=== PATIENT | male | born 1965 | race Caucasian/White ===

== ENCOUNTER 2023-04-27 15:57 | Emergency (ER) | payer MEDICAID ==
[~2023-04-27] VITALS: Ht 190.5 cm; Wt 68.0 kg
[~2023-04-27 15:57] MED LIST: CHLGLU.12S MT; CLIN300 PO; HYDACE5; HYDACE5 PO; IBUP800 PO; META400 PO; META800 PO; RXHYDACE PO
[2023-04-27 16:23] LABS: BASOPHILS ABSOLUTE AUTO 0.05 K/mm3 (0.00-0.23); BASOPHILS PERCENT AUTO 1 % (0-2); EOSINOPHILS ABSOLUTE AUTO 0.07 K/mm3 (0.00-0.68); EOSINOPHILS PERCENT AUTO 1 % (0-6); Hematocrit 37.2 % (37.0-53.0); Hemoglobin 13.1 g/dL (13.5-17.5); IMMATURE GRAN ABSOLUTE AUTO 0.04 K/mm3 (0.00-0.10); IMMATURE GRAN PERCENT AUTO 1 % (0-1); LYMPHOCYTES ABSOLUTE AUTO 2.39 K/mm3 (0.84-5.20); LYMPHOCYTES PERCENT AUTO 30 % (21-46); MONOCYTES ABSOLUTE AUTO 0.97 K/mm3 (0.16-1.47); MONOCYTES PERCENT AUTO 12 % (4-13); Mean Corpuscular HGB Conc 35.2 g/dL (31.5-36.5); Mean Corpuscular Volume 88 fL (80-100); Mean Platelet Volume 9.5 fL (9.1-12.4); NEUTROPHILS ABSOLUTE AUTO 4.33 K/mm3 (1.96-9.15); NEUTROPHILS PERCENT AUTO 55 % (41-73); Platelet Count 395 K/mm3 (150-400); RDW Coefficient Variation 14.4 % (11.7-14.2); RDW Standard Deviation 45.7 fL (35.1-46.3); Red Blood Cell Count 4.23 M/mm3 (4.30-5.90); White Blood Cell Count 7.85 K/mm3 (4.00-11.30)
[2023-04-27 17:15] LABS: Albumin, Blood 3.7 g/dL (3.4-5.0); Albumin/Globulin Ratio 1.1 (0.8-1.8); Bilirubin, Total 0.3 mg/dL (0.1-1.0); Bun/Creatinine Ratio 16.2 (12.0-20.0); Calcium, Blood 8.7 mg/dL (8.5-10.1); Creatinine, Blood 0.74 mg/dL (0.60-1.20); Globulin, Blood 3.4 g/dL (2.2-4.0); Potassium, Blood 3.9 mmol/L (3.5-5.5); Total Protein, Blood 7.1 g/dL (6.4-8.2)
[2023-04-27] MEDS ORDERED: ACETAMINOPHEN500 MG PO (18:54)
[2023-04-27 19:10] VITALS: BP 122/83
[2023-04-28] MEDS ORDERED: COMBIVENT RESPIM4 G1 INH (14:38)
[2023-04-28] MEDS ORDERED: Toprol Xl25 MG PO (14:38)
[2023-04-28] MEDS ORDERED: ALBU2.5V5 INH (14:49)
== END 2023-04-27 19:12 | disposition home or self-care (01) ==
LOC: ER 15:57
PROVIDERS: Physician Assistant
DX: R07.89 Other chest pain (principal); R10.9 Unspecified abdominal pain; Z79.899 Other long term (current) drug therapy
CPT/HCPCS: 71046; 80053; 85025; 93005; 93010; 96374; 99283-25; J1885

== ENCOUNTER 2023-08-29 22:12 | Emergency (ER) | payer MEDICAID ==
[~2023-08-29] VITALS: Ht 190.5 cm; Wt 65.8 kg
[~2023-08-29 22:12] MED LIST changes: +ACETAMINOPHEN500 MG PO; +ALBU2.5V5 INH; +COMBIVENT RESPIM4 G1 INH; +Toprol Xl25 MG PO
[2023-08-29] MEDS ORDERED: Albuterol 2.5 MG/3 ML VIAL INH SCH ×2 (22:20→22:25)
[2023-08-29 22:30] LABS: Base Excess Venous 2.4 mmol/L; Bicarbonate Venous 26.8 mmol/L (24.0-30.0); PCO2 Venous 34.1 mmHg (38-42); pH Blood Venous 7.49 (7.34-7.37)
[2023-08-29 22:32] LABS: BASOPHILS ABSOLUTE AUTO 0.09 K/mm3 (0.00-0.23); BASOPHILS PERCENT AUTO 1 % (0-2); EOSINOPHILS ABSOLUTE AUTO 0.11 K/mm3 (0.00-0.68); EOSINOPHILS PERCENT AUTO 1 % (0-6); Hematocrit 36.8 % (37.0-53.0); Hemoglobin 12.8 g/dL (13.5-17.5); IMMATURE GRAN ABSOLUTE AUTO 0.03 K/mm3 (0.00-0.10); IMMATURE GRAN PERCENT AUTO 0 % (0-1); LYMPHOCYTES ABSOLUTE AUTO 2.59 K/mm3 (0.84-5.20); LYMPHOCYTES PERCENT AUTO 21 % (21-46); MONOCYTES ABSOLUTE AUTO 1.59 K/mm3 (0.16-1.47); MONOCYTES PERCENT AUTO 13 % (4-13); Mean Corpuscular HGB 31.1 pg (26.0-34.0); Mean Corpuscular HGB Conc 34.8 g/dL (31.5-36.5); Mean Corpuscular Volume 90 fL (80-100); Mean Platelet Volume 9.7 fL (9.1-12.4); NEUTROPHILS ABSOLUTE AUTO 7.75 K/mm3 (1.96-9.15); NEUTROPHILS PERCENT AUTO 64 % (41-73); Platelet Count 392 K/mm3 (150-400); RDW Standard Deviation 46.3 fL (35.1-46.3); Red Blood Cell Count 4.11 M/mm3 (4.30-5.90); White Blood Cell Count 12.16 K/mm3 (4.00-11.30)
[2023-08-29] MEDS ORDERED: Azithromycin 250 MG Tab PO ONE (22:35)
[2023-08-29 22:51] LABS: Albumin, Blood 3.6 g/dL (3.4-5.0); Albumin/Globulin Ratio 0.9 (0.8-1.8); Bilirubin, Total 0.4 mg/dL (0.1-1.0); Creatinine, Blood 0.58 mg/dL (0.60-1.20); Globulin, Blood 3.8 g/dL (2.2-4.0); Potassium, Blood 4.3 mmol/L (3.5-5.5); Total Protein, Blood 7.4 g/dL (6.4-8.2)
[2023-08-30 00:13] LABS: Influenza A, PCR NEGATIVE (NEGATIVE); Influenza B, PCR NEGATIVE (NEGATIVE); Resp Syncytial Virus, PCR NEGATIVE (NEGATIVE); SARS-Cov-2 (COVID-19) PCR, MMC NEGATIVE (NEGATIVE)
[2023-08-30] MEDS ORDERED: Prednisone20 MG PO (01:14)
[2023-08-30] MEDS ORDERED: Zithromax250 MG PO (01:14)
[2023-08-30] MEDS ORDERED: ALBU90OI INH (01:14)
[2023-08-30] MEDS ORDERED: ALBU2.5V5 INH (01:16)
[2023-08-30 01:26] VITALS: BP 125/98
== END 2023-08-30 01:30 | disposition home or self-care (01) ==
LOC: ER 22:12
PROVIDERS: Emergency Medicine
DX: J44.1 Chronic obstructive pulmonary disease with (acute) exacerbation (principal); I48.91 Unspecified atrial fibrillation; Z79.899 Other long term (current) drug therapy
CPT/HCPCS: 0241U; 71045; 80053; 82803; 83880; 84484; 85025; 93005; 93010; 94644; 94664; 99285-25; A9270

== ENCOUNTER 2023-11-21 01:17 | Emergency (ER) | payer OTHER ==
[~2023-11-21] VITALS: Ht 190.5 cm; Wt 68.0 kg
[~2023-11-21 01:17] MED LIST changes: +ALBU90OI INH; +Prednisone20 MG PO; +Zithromax250 MG PO
[2023-11-21] MEDS ORDERED: Albuterol 2.5 MG/3 ML VIAL INH SCH (01:35)
[2023-11-21] MEDS ORDERED: Dexamethasone Sod Phos 10 MG/ML 1ML VIAL PO ONE (01:35)
[2023-11-21] MEDS ORDERED: ALBU90OI INH (02:48)
[2023-11-21] MEDS ORDERED: COMBIVENT RESPIM4 G1 INH (02:48)
[2023-11-21] MEDS ORDERED: PRED20 PO (02:48)
[2023-11-21] MEDS ORDERED: RX Prepack Albuterol 1 PREPACK/6.7 GM INH UD ONE (03:55)
[2023-11-21 04:00] VITALS: BP 145/93
== END 2023-11-21 04:01 | disposition home or self-care (01) ==
LOC: ER 01:17
DX: J44.1 Chronic obstructive pulmonary disease with (acute) exacerbation (principal); I48.91 Unspecified atrial fibrillation; F17.200 Nicotine dependence, unspecified, uncomplicated; Z79.52 Long term (current) use of systemic steroids; Z79.899 Other long term (current) drug therapy
CPT/HCPCS: 94640; 94664; 99284-25; A9270; J1100

== ENCOUNTER 2024-03-06 10:45 | Emergency (ER) | payer OTHER ==
[~2024-03-06] VITALS: Ht 190.5 cm; Wt 70.3 kg
[~2024-03-06 10:45] MED LIST changes: +METO25ER PO; +PRED20 PO; +XARELTO20 MG PO
[2024-03-06 10:53] VITALS: BP 90/71
[2024-03-06 11:52] LABS: Albumin, Blood 4.1 g/dL (3.4-5.0); Albumin/Globulin Ratio 1.2 (0.8-1.8); Bilirubin, Total 0.4 mg/dL (0.1-1.0); Bun/Creatinine Ratio 18.6 (12.0-20.0); Calcium, Blood 8.7 mg/dL (8.5-10.1); Creatinine, Blood 1.02 mg/dL (0.60-1.20); Globulin, Blood 3.4 g/dL (2.2-4.0); Potassium, Blood 4.5 mmol/L (3.5-5.5); Total Protein, Blood 7.5 g/dL (6.4-8.2)
[2024-03-06 12:03] LABS: BASOPHILS ABSOLUTE AUTO 0.06 K/mm3 (0.00-0.23); BASOPHILS PERCENT AUTO 1 % (0-2); EOSINOPHILS ABSOLUTE AUTO 0.09 K/mm3 (0.00-0.68); EOSINOPHILS PERCENT AUTO 1 % (0-6); Hematocrit 44.6 % (37.0-53.0); Hemoglobin 15.3 g/dL (13.5-17.5); IMMATURE GRAN ABSOLUTE AUTO 0.03 K/mm3 (0.00-0.10); IMMATURE GRAN PERCENT AUTO 0 % (0-1); LYMPHOCYTES PERCENT AUTO 29 % (21-46); MONOCYTES ABSOLUTE AUTO 0.91 K/mm3 (0.16-1.47); MONOCYTES PERCENT AUTO 10 % (4-13); Mean Corpuscular HGB Conc 34.3 g/dL (31.5-36.5); Mean Corpuscular Volume 93 fL (80-100); Mean Platelet Volume 9.7 fL (9.1-12.4); NEUTROPHILS PERCENT AUTO 59 % (41-73); Platelet Count 432 K/mm3 (150-400); RDW Coefficient Variation 14.9 % (11.7-14.2); Red Blood Cell Count 4.78 M/mm3 (4.30-5.90); White Blood Cell Count 8.89 K/mm3 (4.00-11.30)
[2024-03-06] MEDS ORDERED: XARELTO20 MG PO (12:34)
[2024-03-06] MEDS ORDERED: Toprol Xl25 MG PO (12:34)
== END 2024-03-06 12:34 | disposition left against medical advice (07) ==
LOC: ER 10:45
PROVIDERS: Physician Assistant
DX: R07.9 Chest pain, unspecified (principal); I48.0 Paroxysmal atrial fibrillation; J44.9 Chronic obstructive pulmonary disease, unspecified; Z91.048 Other nonmedicinal substance allergy status; Z79.899 Other long term (current) drug therapy; Z79.01 Long term (current) use of anticoagulants
CPT/HCPCS: 36415; 71046; 80053; 84484; 85025; 93005; 93010; 99285-25

== ENCOUNTER 2024-05-27 17:58 | Emergency (ER) | payer OTHER ==
[~2024-05-27] VITALS: Ht 190.5 cm; Wt 65.8 kg
[2024-05-27 18:54] LABS: BASOPHILS ABSOLUTE AUTO 0.09 K/mm3 (0.00-0.23); BASOPHILS PERCENT AUTO 1 % (0-2); EOSINOPHILS ABSOLUTE AUTO 0.19 K/mm3 (0.00-0.68); EOSINOPHILS PERCENT AUTO 3 % (0-6); Hematocrit 42.7 % (37.0-53.0); Hemoglobin 14.8 g/dL (13.5-17.5); IMMATURE GRAN ABSOLUTE AUTO 0.02 K/mm3 (0.00-0.10); IMMATURE GRAN PERCENT AUTO 0 % (0-1); LYMPHOCYTES ABSOLUTE AUTO 2.24 K/mm3 (0.84-5.20); LYMPHOCYTES PERCENT AUTO 29 % (21-46); MONOCYTES ABSOLUTE AUTO 0.62 K/mm3 (0.16-1.47); MONOCYTES PERCENT AUTO 8 % (4-13); Mean Corpuscular HGB 31.5 pg (26.0-34.0); Mean Corpuscular HGB Conc 34.7 g/dL (31.5-36.5); Mean Corpuscular Volume 91 fL (80-100); Mean Platelet Volume 9.5 fL (9.1-12.4); NEUTROPHILS ABSOLUTE AUTO 4.51 K/mm3 (1.96-9.15); NEUTROPHILS PERCENT AUTO 59 % (41-73); Platelet Count 371 K/mm3 (150-400); RDW Standard Deviation 43.6 fL (35.1-46.3); White Blood Cell Count 7.67 K/mm3 (4.00-11.30)
[2024-05-27 18:59] LABS: Influenza A, PCR NEGATIVE (NEGATIVE); Influenza B, PCR NEGATIVE (NEGATIVE); Resp Syncytial Virus, PCR NEGATIVE (NEGATIVE); SARS-Cov-2 (COVID-19) PCR, MMC NEGATIVE (NEGATIVE)
[2024-05-27 19:13] LABS: Albumin, Blood 3.8 g/dL (3.4-5.0); Albumin/Globulin Ratio 1.1 (0.8-1.8); Bilirubin, Total 0.3 mg/dL (0.1-1.0); Bun/Creatinine Ratio 17.3 (12.0-20.0); Calcium, Blood 8.9 mg/dL (8.5-10.1); Creatinine, Blood 0.64 mg/dL (0.60-1.20); Globulin, Blood 3.6 g/dL (2.2-4.0); Potassium, Blood 3.7 mmol/L (3.5-5.5); Total Protein, Blood 7.4 g/dL (6.4-8.2)
[2024-05-27] MEDS ORDERED: Ipratropium/Albuterol SulF 2.5-0.5MG/3 ML Amp INH ONE (23:55)
[2024-05-27] MEDS ORDERED: MethylPREDNISolone Sod Succ 125 MG Vial IV ONE (23:55)
[2024-05-28 00:04] VITALS: BP 128/87
[2024-05-28] MEDS ORDERED: ALBU90OI INH (00:35)
[2024-05-28] MEDS ORDERED: PRED20 PO (00:35)
== END 2024-05-28 01:03 | disposition home or self-care (01) ==
LOC: ER 17:58
PROVIDERS: Student in an Organized Health Care Education/Training Program
DX: J44.1 Chronic obstructive pulmonary disease with (acute) exacerbation (principal); F17.200 Nicotine dependence, unspecified, uncomplicated; F10.129 Alcohol abuse with intoxication, unspecified; J30.1 Allergic rhinitis due to pollen; Z59.00 Homelessness unspecified; Z79.2 Long term (current) use of antibiotics; Z79.899 Other long term (current) drug therapy
CPT/HCPCS: 0241U; 71046; 80053; 83880; 85025; 93005; 93010; 94640; 94664; 94760; 96374; 99285-25; J2919

== ENCOUNTER 2024-07-30 08:32 | Inpatient (IN) | payer OTHER ==
[~2024-07-30] VITALS: Ht 188 cm; Wt 68.0 kg
[2024-07-30] MEDS ORDERED: Ipratropium/Albuterol SulF 2.5-0.5MG/3 ML Amp INH ONE (08:40)
[2024-07-30] MEDS ORDERED: Albuterol 2.5 MG/3 ML VIAL INH SCH ×2 (08:40→09:40)
[2024-07-30] MEDS ORDERED: MethylPREDNISolone Sod Succ 125 MG Vial IV ONE (08:40)
[2024-07-30 08:50] LABS: BASOPHILS ABSOLUTE AUTO 0.05 K/mm3 (0.00-0.23); BASOPHILS PERCENT AUTO 1 % (0-2); EOSINOPHILS ABSOLUTE AUTO 0.04 K/mm3 (0.00-0.68); EOSINOPHILS PERCENT AUTO 1 % (0-6); Hematocrit 40.4 % (37.0-53.0); IMMATURE GRAN ABSOLUTE AUTO 0.03 K/mm3 (0.00-0.10); IMMATURE GRAN PERCENT AUTO 0 % (0-1); LYMPHOCYTES ABSOLUTE AUTO 1.67 K/mm3 (0.84-5.20); LYMPHOCYTES PERCENT AUTO 23 % (21-46); MONOCYTES ABSOLUTE AUTO 0.72 K/mm3 (0.16-1.47); MONOCYTES PERCENT AUTO 10 % (4-13); Mean Corpuscular HGB 31.5 pg (26.0-34.0); Mean Corpuscular HGB Conc 34.7 g/dL (31.5-36.5); Mean Corpuscular Volume 91 fL (80-100); Mean Platelet Volume 9.9 fL (9.1-12.4); NEUTROPHILS ABSOLUTE AUTO 4.63 K/mm3 (1.96-9.15); NEUTROPHILS PERCENT AUTO 65 % (41-73); Platelet Count 301 K/mm3 (150-400); RDW Coefficient Variation 14.4 % (11.7-14.2); RDW Standard Deviation 48.1 fL (35.1-46.3); Red Blood Cell Count 4.44 M/mm3 (4.30-5.90); White Blood Cell Count 7.14 K/mm3 (4.00-11.30)
[2024-07-30 09:24] LABS: Albumin, Blood 3.7 g/dL (3.4-5.0); Bilirubin, Total 0.4 mg/dL (0.1-1.0); Bun/Creatinine Ratio 18.9 (12.0-20.0); Calcium, Blood 8.3 mg/dL (8.5-10.1); Creatinine, Blood 0.64 mg/dL (0.60-1.20); Globulin, Blood 3.6 g/dL (2.2-4.0); Magnesium, Blood 2.1 mg/dL (1.6-2.4); Potassium, Blood 3.8 mmol/L (3.5-5.5); Total Protein, Blood 7.3 g/dL (6.4-8.2)
[2024-07-30] MEDS ORDERED: NS 1,000 ML IV SCH (09:25)
[2024-07-30 09:29] LABS: Influenza A, PCR NEGATIVE (NEGATIVE); Influenza B, PCR NEGATIVE (NEGATIVE); Resp Syncytial Virus, PCR NEGATIVE (NEGATIVE); SARS-Cov-2 (COVID-19) PCR, MMC NEGATIVE (NEGATIVE)
[2024-07-30] MEDS ORDERED: Azithromycin 500 MG in NS 250 ML IV ONE (09:30)
[2024-07-30 09:46] LABS: Base Excess Venous -0.4 mmol/L; Bicarbonate Venous 24.4 mmol/L (24.0-30.0); pH Blood Venous 7.42 (7.34-7.37)
[2024-07-30] MEDS ORDERED: LORazepam 2 MG/ML 1ML Injection IV ONE (09:50)
[2024-07-30] MEDS ORDERED: Acetaminophen 325 MG TABLET PO PRN (11:30)
[2024-07-30] MEDS ORDERED: Ipratropium/Albuterol SulF 2.5-0.5MG/3 ML Amp INH SCH (11:30)
[2024-07-30] MEDS ORDERED: FLU VACC TS2024-25(6MOS UP)/PF 45 MCG/0.5 ML SYRINGE IM PRN (11:35)
[2024-07-30] MEDS ORDERED: LORazepam 1 MG Tab PO PRN (11:35)
[2024-07-30] MEDS ORDERED: Prochlorperazine Edisylate 10 mg Vial IV PRN (11:35)
[2024-07-30 12:00] VITALS: BP 117/81
[2024-07-30] MEDS ORDERED: Azithromycin 250 MG Tab PO SCH (12:00)
--- NOTE | 2024-07-30 13:07 | NUR ---
CALL FROM LISA COLINDRES FOR REPORT. STATES PATIENT HAS A DOG WITH HIM. PATIENT IS HOUSELESS AND DOES NOT HAVE ANYWHERE FOR THE DOG TO GO. PATIENT IS UNABLE TO COME TO THE FLOOR WITH THE DOG, ESPECIALLY HE IS UNABLE TO AMBULATE SECONDARY TO SOB R/T COPD EXACERBATION. LISA COLINDRES STATES SHE WILL ASK PATIENT IF A FAMILY MEMBER CAN COME GET THE DOG. ANOTHER OPTION IS FOR [facility] TO HOUSE THE DOG UNTIL PATIENT IS RELEASED. FRONT OFFICE SECRETARY NOTIFIED WHO WILL CALL AND DISCUSS WITH ER. PATIENT NOT ACCEPTED TO FLOOR AT THIS TIME, PENDING COORDINATION OF DOG PICK-UP.
[2024-07-30] MEDS ORDERED: MethylPREDNISolone Sod Succ 125 MG Vial IV SCH (16:00)
[2024-07-30] MEDS ORDERED: Sennosides 8.6 MG Tab PO SCH (21:00)
[2024-07-30] MEDS ORDERED: Famotidine 20 MG Tab PO SCH (21:00)
[2024-07-31] MEDS ORDERED: COMBIVENT RESPIM4 G1 (07:18)
[2024-07-31] MEDS ORDERED: Rivaroxaban 10 MG Tab PO SCH (09:00)
[2024-07-31] MEDS ORDERED: Azithromycin 250 MG Tab PO SCH (09:00)
[2024-07-31] MEDS ORDERED: Nicotine 21 MG PATCH TOP SCH (09:00)
== END 2024-07-30 13:50 | disposition left against medical advice (07) | DRG 189 ==
LOC: ER 08:32 → MEDS 11:31
PROVIDERS: Student in an Organized Health Care Education/Training Program; ADMIT Internal Medicine
DX: J96.00 Acute respiratory failure, unspecified whether with hypoxia or hypercapnia (principal); J44.1 Chronic obstructive pulmonary disease with (acute) exacerbation; E87.1 Hypo-osmolality and hyponatremia; Z59.00 Homelessness unspecified; E44.0 Moderate protein-calorie malnutrition; I48.0 Paroxysmal atrial fibrillation; F17.210 Nicotine dependence, cigarettes, uncomplicated; F10.10 Alcohol abuse, uncomplicated; F15.10 Other stimulant abuse, uncomplicated; F11.10 Opioid abuse, uncomplicated; Z53.29 Procedure and treatment not carried out because of patient's decision for other reasons; Z79.899 Other long term (current) drug therapy; Z79.01 Long term (current) use of anticoagulants; Z79.51 Long term (current) use of inhaled steroids; Z79.52 Long term (current) use of systemic steroids; Z91.048 Other nonmedicinal substance allergy status; Z99.89 Dependence on other enabling machines and devices
CPT/HCPCS: 0241U; 71045; 80053; 82803; 83735; 85025; 94640; 94644; 94645; 94664; J0456; J7030; J7050

== ENCOUNTER 2024-07-31 04:38 | Inpatient (IN) | payer OTHER ==
[~2024-07-31] VITALS: Ht 190.5 cm; Wt 68.0 kg
[2024-07-31 05:10] LABS: BASOPHILS ABSOLUTE AUTO 0.03 K/mm3 (0.00-0.23); BASOPHILS PERCENT AUTO 0 % (0-2); EOSINOPHILS ABSOLUTE AUTO 0.06 K/mm3 (0.00-0.68); EOSINOPHILS PERCENT AUTO 1 % (0-6); Hemoglobin 14.1 g/dL (13.5-17.5); IMMATURE GRAN ABSOLUTE AUTO 0.03 K/mm3 (0.00-0.10); IMMATURE GRAN PERCENT AUTO 0 % (0-1); LYMPHOCYTES ABSOLUTE AUTO 1.51 K/mm3 (0.84-5.20); LYMPHOCYTES PERCENT AUTO 17 % (21-46); MONOCYTES ABSOLUTE AUTO 0.71 K/mm3 (0.16-1.47); MONOCYTES PERCENT AUTO 8 % (4-13); Mean Corpuscular HGB 31.6 pg (26.0-34.0); Mean Corpuscular HGB Conc 35.3 g/dL (31.5-36.5); Mean Corpuscular Volume 90 fL (80-100); Mean Platelet Volume 10.1 fL (9.1-12.4); NEUTROPHILS ABSOLUTE AUTO 6.51 K/mm3 (1.96-9.15); NEUTROPHILS PERCENT AUTO 74 % (41-73); Platelet Count 308 K/mm3 (150-400); RDW Coefficient Variation 14.3 % (11.7-14.2); RDW Standard Deviation 47.1 fL (35.1-46.3); Red Blood Cell Count 4.46 M/mm3 (4.30-5.90); White Blood Cell Count 8.85 K/mm3 (4.00-11.30)
[2024-07-31 05:38] LABS: Albumin, Blood 3.8 g/dL (3.4-5.0); Albumin/Globulin Ratio 1.1 (0.8-1.8); Bilirubin, Total 0.3 mg/dL (0.1-1.0); Bun/Creatinine Ratio 21.3 (12.0-20.0); Calcium, Blood 8.1 mg/dL (8.5-10.1); Creatinine, Blood 0.61 mg/dL (0.60-1.20); Globulin, Blood 3.6 g/dL (2.2-4.0); Potassium, Blood 3.8 mmol/L (3.5-5.5); Total Protein, Blood 7.4 g/dL (6.4-8.2)
[2024-07-31] MEDS ORDERED: Albuterol 2.5 MG/3 ML VIAL INH SCH ×4 (06:40→13:20)
[2024-07-31] MEDS ORDERED: Ipratropium/Albuterol SulF 2.5-0.5MG/3 ML Amp INH ONE ×2 (06:40→12:05)
[2024-07-31] MEDS ORDERED: MethylPREDNISolone Sod Succ 125 MG Vial IV ONE (06:40)
[2024-07-31] MEDS ORDERED: COMBIVENT RESPIM4 G1 (07:18)
[2024-07-31] MEDS ORDERED: Magnesium Sulf 2 GM/Water 50ML 50 ML IV ONE (07:30)
[2024-07-31] MEDS ORDERED: Midazolam HCl 1MG / ML 2ML Vial IV ONE (07:35)
[2024-07-31] MEDS ORDERED: LORazepam 1 MG Tab PO PRN (14:05)
[2024-07-31] MEDS ORDERED: Ipratropium/Albuterol SulF 2.5-0.5MG/3 ML Amp INH SCH (14:05)
[2024-07-31] MEDS ORDERED: Acetaminophen 325 MG TABLET PO PRN (14:05)
[2024-07-31] MEDS ORDERED: FLU VACC TS2024-25(6MOS UP)/PF 45 MCG/0.5 ML SYRINGE IM PRN (14:10)
[2024-07-31] MEDS ORDERED: Prochlorperazine Edisylate 10 mg Vial IV PRN (14:10)
[2024-07-31] MEDS ORDERED: Azithromycin 500 MG in NS 250 ML IV SCH (14:27)
[2024-07-31] MEDS ORDERED: Mometasone/Formoterol MDI 200/5 mcg 13 GM INH SCH (14:30)
[2024-07-31] MEDS ORDERED: Albuterol HFA200 ACT/6.7 GM INH INH PRN (14:40)
[2024-07-31 15:08] VITALS: BP 121/82
[2024-07-31] MEDS ORDERED: MethylPREDNISolone Sod Succ 125 MG Vial IV SCH (16:00)
[2024-08-01] MEDS ORDERED: Rivaroxaban 10 MG Tab PO SCH (09:00)
[2024-08-01] MEDS ORDERED: Nicotine 21 MG PATCH TOP SCH (09:00)
== END 2024-07-31 18:10 | disposition left against medical advice (07) | DRG 189 ==
LOC: ER 04:38 → ERHOLD 14:05
PROVIDERS: Emergency Medicine; ADMIT Internal Medicine
DX: J96.00 Acute respiratory failure, unspecified whether with hypoxia or hypercapnia (principal); J44.1 Chronic obstructive pulmonary disease with (acute) exacerbation; E44.0 Moderate protein-calorie malnutrition; R64 Cachexia; E87.1 Hypo-osmolality and hyponatremia; Z68.1 Body mass index [BMI] 19.9 or less, adult; J43.9 Emphysema, unspecified; I48.0 Paroxysmal atrial fibrillation; F17.200 Nicotine dependence, unspecified, uncomplicated; Z79.01 Long term (current) use of anticoagulants; Z79.52 Long term (current) use of systemic steroids; Z53.29 Procedure and treatment not carried out because of patient's decision for other reasons
CPT/HCPCS: 80053; 84484; 85025; 93005; 93010; 94640; 94644; 94645; 94664; 96365; 96375; 99285-25; A9270; J0456; J2250; J2919; J3475; J7050

== ENCOUNTER 2024-09-12 19:01 | Emergency (ER) | payer OTHER ==
[~2024-09-12] VITALS: Ht 190.5 cm; Wt 70.3 kg
[~2024-09-12 19:01] MED LIST changes: +COMBIVENT RESPIM4 G1
[2024-09-12] MEDS ORDERED: MethylPREDNISolone Sod Succ 125 MG Vial IV ONE (19:10)
[2024-09-12] MEDS ORDERED: Ipratropium/Albuterol SulF 2.5-0.5MG/3 ML Amp INH ONE (19:10)
[2024-09-12 19:23] LABS: BASOPHILS ABSOLUTE AUTO 0.08 K/mm3 (0.00-0.23); BASOPHILS PERCENT AUTO 1 % (0-2); EOSINOPHILS PERCENT AUTO 2 % (0-6); Hematocrit 38.4 % (37.0-53.0); Hemoglobin 13.5 g/dL (13.5-17.5); IMMATURE GRAN ABSOLUTE AUTO 0.02 K/mm3 (0.00-0.10); IMMATURE GRAN PERCENT AUTO 0 % (0-1); LYMPHOCYTES ABSOLUTE AUTO 2.92 K/mm3 (0.84-5.20); LYMPHOCYTES PERCENT AUTO 33 % (21-46); MONOCYTES ABSOLUTE AUTO 0.73 K/mm3 (0.16-1.47); MONOCYTES PERCENT AUTO 8 % (4-13); Mean Corpuscular HGB 31.8 pg (26.0-34.0); Mean Corpuscular HGB Conc 35.2 g/dL (31.5-36.5); Mean Corpuscular Volume 91 fL (80-100); Mean Platelet Volume 9.2 fL (9.1-12.4); NEUTROPHILS ABSOLUTE AUTO 4.88 K/mm3 (1.96-9.15); NEUTROPHILS PERCENT AUTO 55 % (41-73); Platelet Count 348 K/mm3 (150-400); RDW Coefficient Variation 15.4 % (11.7-14.2); RDW Standard Deviation 50.7 fL (35.1-46.3); Red Blood Cell Count 4.24 M/mm3 (4.30-5.90); White Blood Cell Count 8.83 K/mm3 (4.00-11.30)
[2024-09-12 19:52] LABS: Albumin, Blood 3.8 g/dL (3.4-5.0); Albumin/Globulin Ratio 1.3 (0.8-1.8); Bilirubin, Total 0.3 mg/dL (0.1-1.0); Bun/Creatinine Ratio 11.6 (12.0-20.0); Calcium, Blood 8.5 mg/dL (8.5-10.1); Creatinine, Blood 0.69 mg/dL (0.60-1.20); Globulin, Blood 2.9 g/dL (2.2-4.0); Total Protein, Blood 6.7 g/dL (6.4-8.2)
[2024-09-12] MEDS ORDERED: Prednisone20 MG PO (20:51)
[2024-09-12 21:44] VITALS: BP 118/81
== END 2024-09-12 21:49 | disposition home or self-care (01) ==
LOC: ER 19:01
PROVIDERS: Emergency Medicine
DX: J44.1 Chronic obstructive pulmonary disease with (acute) exacerbation (principal); R00.2 Palpitations; J43.9 Emphysema, unspecified; F17.210 Nicotine dependence, cigarettes, uncomplicated; Z91.09 Other allergy status, other than to drugs and biological substances; Z79.02 Long term (current) use of antithrombotics/antiplatelets; Z79.52 Long term (current) use of systemic steroids
CPT/HCPCS: 71046; 80053; 83880; 84484; 85025; 93005; 93010; 94640; 94664; 96374; 99285-25; J2919

== ENCOUNTER 2024-12-27 23:25 | Inpatient (IN) | payer OTHER ==
[~2024-12-27] VITALS: Ht 190.5 cm; Wt 69.2 kg
[~2024-12-27 23:25] MED LIST changes: -COMBIVENT RESPIM4 G1
[2024-12-27] MEDS ORDERED: Diltiazem HCl 5 MG / ML 5ML Vial IV ONE (23:50)
[2024-12-27 23:52] LABS: BASOPHILS ABSOLUTE AUTO 0.07 K/mm3 (0.00-0.23); BASOPHILS PERCENT AUTO 1 % (0-2); EOSINOPHILS ABSOLUTE AUTO 0.12 K/mm3 (0.00-0.68); EOSINOPHILS PERCENT AUTO 1 % (0-6); Hematocrit 41.8 % (37.0-53.0); Hemoglobin 14.5 g/dL (13.5-17.5); IMMATURE GRAN ABSOLUTE AUTO 0.04 K/mm3 (0.00-0.10); IMMATURE GRAN PERCENT AUTO 0 % (0-1); LYMPHOCYTES ABSOLUTE AUTO 2.31 K/mm3 (0.84-5.20); LYMPHOCYTES PERCENT AUTO 17 % (21-46); MONOCYTES ABSOLUTE AUTO 1.26 K/mm3 (0.16-1.47); MONOCYTES PERCENT AUTO 9 % (4-13); Mean Corpuscular HGB Conc 34.7 g/dL (31.5-36.5); Mean Corpuscular Volume 91 fL (80-100); NEUTROPHILS ABSOLUTE AUTO 9.83 K/mm3 (1.96-9.15); NEUTROPHILS PERCENT AUTO 72 % (41-73); NRBC ABSOLUTE 0.00 K/mm3 (0.00-0.02); NRBC Auto 0.0 /100 WBC (0.0-0.2); Platelet Count 310 K/mm3 (150-400); RDW Coefficient Variation 14.6 % (11.7-14.2); RDW Standard Deviation 48.1 fL (35.1-46.3)
[2024-12-27] MEDS ORDERED: NS 1,000 ML IV SCH (23:55)
[2024-12-28 00:07] LABS: Alanine Aminotransfer (ALT/SGP 32.0 U/L (12-78); Albumin, Blood 3.7 g/dL (3.4-5.0); Albumin/Globulin Ratio 1.0 (0.8-1.8); Anion Gap 12.0 mmol/L (3-11); Aspartate Aminotrans (AST/SGOT 20.0 U/L (12-37); Bilirubin, Total 0.8 mg/dL (0.1-1.0); Blood Urea Nitrogen 17.0 mg/dL (8-24); CO2, Blood 24.0 mmol/L (21-32); Calcium, Blood 8.4 mg/dL (8.5-10.1); Chloride, Blood 100.0 mmol/L (98-108); Creatinine, Blood 0.93 mg/dL (0.60-1.20); Globulin, Blood 3.8 g/dL (2.2-4.0); Glucose, Blood 99.0 mg/dL (70-99); Potassium, Blood 3.8 mmol/L (3.5-5.5); Sodium, Blood 132.0 mmol/L (136-145); Total Protein, Blood 7.5 g/dL (6.4-8.2)
[2024-12-28] MEDS ORDERED: Etomidate 2MG / ML 10ML Vial IV ONE (01:00)
[2024-12-28] MEDS ORDERED: Amiodarone HCl 450 MG in NS 250 ML IV SCH (01:30)
[2024-12-28 01:52] LABS: Magnesium, Blood 2.4 mg/dL (1.6-2.4)
[2024-12-28 02:18] LABS: Thyroid Stimulating Hormone 23.9 uIU/mL (0.360-4.800)
[2024-12-28] MEDS ORDERED: Albuterol 2.5 MG/3 ML VIAL INH PRN (03:20)
--- NOTE | 2024-12-28 03:24 | NUR ---
PCU CALLED CONCERNING THE PATIENT HAVING THEIR DOG WITH THEM IN THE ER. PER THE SERVICE ANIMAL POLICY, WE WOULD NORMALLY ALLOW A DOG TO BE WITH THE PATIENT WHILE THE PATIENT WAS HERE LONG THE DOG WAS NOT AGRESSIVE AND DID NOT INTERFERE WITH CARE. HOWEVER THE PATIENT MUST ALSO BE ABLE TO TAKE CARE OF THE DOG WHILE THEY ARE HERE INCLUDING TAKING THE DOG OUTSIDE WHEN IT NEEDS TO USE THE BATHROOM. THIS PATIENT WILL BE ON A CARDIZEM DRIP ON ADMIT. UNTIL THEY ARE OFF OF THE DRIP THEY WILL NOT BE ABLE TO TAKE THE DOG OUTSIDE. THE OPTIONS THEN ARE THAT SOMEONE WOULD NEED TO COME GET THE DOG OR [facility] WILL ACCEPT THE DOG TEMPORARILY INTO THEIR CARE UNTIL THE PATIENT IS DISCHARGED. I SPOKE WITH THE PATIENT'S NURSE IN THE ER, JIMMIE. JIMMIE RELAYED THIS INFORMATION TO THE PATIENT. THE PATIENT IS UNABLE TO CONTACT ANYONE AT THIS TIME BUT BELIEVES THEY WILL BE ABLE TO AT 0700 OR CLOSE TO THAT TIME. JIMMIE REPORTS THAT THE DOG IS A SMALL DOG AND SO FAR HAS SHOWN NO SIGNS OF AGRESSION AND HAS NOT INTERFERED WITH CARE. JIMMIE HAS ALSO OFFERED TO TAKE THE DOG OUTSIDE TO SEE IF IT NEEDS TO USE THE BATHROOM BEFORE BRINGING THE PATIENT UP. I RELAYED THIS INFORMATION TO THE PCU CHARGE DIVINA WHO SPOKE WITH THE NURSE WHO WILL BE ASSIGNED TO THE PATIENT. THEY WERE WILLING TO ACCEPT THE PATIENT BRINGING THE DOG TEMPORARILY LONG THE PATIENT IS ABLE TO GET AHOLD OF SOMEONE TO COMMODITY BROKER THE DOG WHEN THEY STATED THEY THOUGHT THEY WOULD BE ABLE TO AT 0700 OR CLOSE TO THAT TIME, AND THAT THE DOG DOES NOT SHOW SIGNS OF AGRESSION OR INTERFERE WITH CARE. IT IS UNDERSTOOD THAT IF THE DOG IS NOT PICKED UP BEFORE NEEDING TO USE THE BATHROOM WHICH THE PATIENT WILL BE UNABLE TO DO, OR IF THE DOG SHOWS AGRESSION OR INTERFERES WITH CARE, THAT THE DOG WILL BE PLACED INTO THE TEMPORARY CARE OF [facility]. IF THE PATIENT REACHES A POINT THAT THEY NO LONGER REQUIRE THE IV DRIP, THEY WILL BE ABLE TO CARE FOR THE ANIMAL FULLY AND THE ONLY CONCERN THEN SHOULD BE IF THE DOG SHOWS AGRESSION OR INTERFERES WITH CARE. THIS MATTER WILL BE READDRESSED IF THERE IS NEW INFORMATION. PER JIMMIE, THE PATIENT REPORTS THAT PER THE DOGS NORMAL BATHROOM SCHEDULE, THE DOG SHOULD NOT NEED TO USE THE BATHROOM UNTIL THE MORNING AND UNDERSTANDS THAT THE STAFF IS NOT REQUIRED TO CARE FOR THE ANIMAL. THE PATIENT ALSO UNDERSTANDS THAT SHOULD THE ANIMAL SHOW AGRESSION OR INTERFERE WITH CARE WE WOULD HAVE TO HAVE THE ANIMAL GO TO [facility], AT LEAST UNTIL SOMEONE COULD GO THERE TO COMMODITY BROKER THE ANIMAL.
[2024-12-28 03:51] VITALS: BP 104/76
--- NOTE | 2024-12-28 05:13 | NUR ---
SHIFT SUMMARY PT NEW ADMIT AND TRANSFERRED TO PCU 19 AROUND 0330. PT UNSURE OF MEDICATIONS HE TAKES AT HOME SO MED REC IS INCOMPLETE. PT A&O X4. ABLE TO MAKE NEEDS KNOWN. AMIODARONE GTT INFUSING PER EMAR. 2ND IV ESTABLISHED AFTER ADMIT WITH K+ NOW INFUSING PER EMAR. AFIB WITH HR 90-130'S. REPORTS SOB AT REST. CONGESTED UNPRODUCTIVE COUGH NOTED. BREATHING TREATMENT DONE PER EMAR AFTER ADMISSION. BP STABLE WITH SBP 100'S. ON RA WITH SPO2 >92%. AFEBRILE. PT CONTINENT WITH URINE. USING URINAL AT BEDSIDE WITH DENAE COLORED URINE NOTED. PT ACCOMPANIED BY HIS "SERVICE DOG". PT EDUCATED REGARDING SERVICE ANIMALS STAYING WITH PATIENT AND THE EMPLOYEE'S RESPONSIBILITIES AND SAFETY. PT REPORTS THAT GIRLFRIEND WILL BE HERE IN THE MORNING TO PARAPROFESSIONAL AIDE TEACHER DOG. PT REPORTING METH USE 2 DAYS AGO; EDUCATED PATIENT. BED IN LOWEST POSITION AND CALL LIGHT WITHIN REACH. THIS RN WILL REPORT TO ONCOMING DAYSHIFT RN.
[2024-12-28 07:25] VITALS: BP 108/98
[2024-12-28] MEDS ORDERED: METO25ER PO (12:33)
[2024-12-28] MEDS ORDERED: Cyclobenzaprine5 MG PO (12:34)
[2024-12-28] MEDS ORDERED: ROSUVASTATIN CA20 MG PO (12:36)
[2024-12-28 12:57] LABS: BASOPHILS ABSOLUTE AUTO 0.04 K/mm3 (0.00-0.23); BASOPHILS PERCENT AUTO 0 % (0-2); EOSINOPHILS ABSOLUTE AUTO 0.02 K/mm3 (0.00-0.68); EOSINOPHILS PERCENT AUTO 0 % (0-6); Hematocrit 45.1 % (37.0-53.0); Hemoglobin 15.3 g/dL (13.5-17.5); IMMATURE GRAN ABSOLUTE AUTO 0.06 K/mm3 (0.00-0.10); IMMATURE GRAN PERCENT AUTO 1 % (0-1); LYMPHOCYTES ABSOLUTE AUTO 0.55 K/mm3 (0.84-5.20); LYMPHOCYTES PERCENT AUTO 4 % (21-46); MONOCYTES ABSOLUTE AUTO 0.41 K/mm3 (0.16-1.47); MONOCYTES PERCENT AUTO 3 % (4-13); Mean Corpuscular HGB Conc 33.9 g/dL (31.5-36.5); Mean Corpuscular Volume 92 fL (80-100); NEUTROPHILS ABSOLUTE AUTO 11.86 K/mm3 (1.96-9.15); NEUTROPHILS PERCENT AUTO 92 % (41-73); NRBC ABSOLUTE 0.00 K/mm3 (0.00-0.02); NRBC Auto 0.0 /100 WBC (0.0-0.2); Platelet Count 291 K/mm3 (150-400); RDW Coefficient Variation 14.8 % (11.7-14.2); RDW Standard Deviation 50.3 fL (35.1-46.3)
[2024-12-28 13:02] VITALS: BP 116/91
[2024-12-28 13:17] LABS: Anion Gap 10.0 mmol/L (3-11); Blood Urea Nitrogen 17.0 mg/dL (8-24); CO2, Blood 25.0 mmol/L (21-32); Calcium, Blood 8.6 mg/dL (8.5-10.1); Chloride, Blood 105.0 mmol/L (98-108); Creatinine, Blood 0.66 mg/dL (0.60-1.20); Glucose, Blood 174.0 mg/dL (70-99); Potassium, Blood 4.5 mmol/L (3.5-5.5); Sodium, Blood 135.0 mmol/L (136-145)
[2024-12-28] MEDS ORDERED: Ipratropium/Albuterol SulF 2.5-0.5MG/3 ML Amp INH SCH (13:50)
[2024-12-28] MEDS ORDERED: Albuterol HFA200 ACT/6.7 GM INH INH PRN (13:50)
[2024-12-28 15:29] VITALS: BP 109/67
--- NOTE | 2024-12-28 18:11 | NUR ---
SHIFT SUMMARY PT IS A&O X 4, COOPERATIVE WITH CARE, AND ABLE TO EXPRESS NEEDS. GETS UP IN ROOM W/ 1 AST. FOR LINE MANAGEMENT. PT TITRATED OFF O2 THIS AM AND HAS BEEN SATTING ABOVE 93% ON RM AIR W/ FREQUENT PRODUCTIVE COUGH. PT SELF-SUCTIONS APPROPRIATELY. OCCASIONAL SOB THAT CLEARS W/ MEDICATIONS PER EMAR. PT IN A.FIB- A.FLUTTER 80s-140s, BPs STABLE. AMIO GTT INFUSING PER EMAR, INFUSION TO COMPLETE AT 0230 ON 12/29. DR. KING ORDERED ORAL TAB AMIO TO BEGIN AFTER GTT COMPLETION. VSS.
[2024-12-28 20:14] VITALS: BP 97/80
[2024-12-28 23:30] VITALS: BP 110/75
[2024-12-29] VITALS (11 sets, daily range): BP systolic 93–118; BP diastolic 68–90
--- NOTE | 2024-12-29 05:00 | NUR ---
SHIFT SUMMARY THIS RN ASSUMED CARE OF PATIENT AT 1900. PT A&O X4. ABLE TO MAKE NEEDS KNOWN. AFIB/AFLUTTER 80-130S. BP STABLE WITH SBP 90-110 S. PT COMPLETED AMIODARONE GTT THIS SHIFT; 0200 PO AMIODARONE GIVEN PER EMAR. PT ON RA WHILE AWAKE WITH SPO2 >92%. PT NOTED TO DESAT TO HIGH 70S WHEN ASLEEP, PLACED ON 2L VIA NC. SBA/IND WITH URINAL AT BEDSIDE. ABLE TO REPOSITION SELF IN BED. BED IN LOWEST POSITION AND CALL LIGHT WITHIN REACH. THIS RN WILL REPORT TO ONCOMING DAYSHIFT RN.
[2024-12-29 05:28] LABS: BASOPHILS ABSOLUTE AUTO 0.02 K/mm3 (0.00-0.23); BASOPHILS PERCENT AUTO 0 % (0-2); EOSINOPHILS ABSOLUTE AUTO 0.00 K/mm3 (0.00-0.68); EOSINOPHILS PERCENT AUTO 0 % (0-6); Hematocrit 45.0 % (37.0-53.0); Hemoglobin 15.4 g/dL (13.5-17.5); IMMATURE GRAN ABSOLUTE AUTO 0.05 K/mm3 (0.00-0.10); IMMATURE GRAN PERCENT AUTO 0 % (0-1); LYMPHOCYTES ABSOLUTE AUTO 0.74 K/mm3 (0.84-5.20); LYMPHOCYTES PERCENT AUTO 6 % (21-46); MONOCYTES ABSOLUTE AUTO 0.62 K/mm3 (0.16-1.47); MONOCYTES PERCENT AUTO 5 % (4-13); Mean Corpuscular HGB Conc 34.2 g/dL (31.5-36.5); Mean Corpuscular Volume 92 fL (80-100); NEUTROPHILS ABSOLUTE AUTO 12.01 K/mm3 (1.96-9.15); NEUTROPHILS PERCENT AUTO 89 % (41-73); NRBC ABSOLUTE 0.00 K/mm3 (0.00-0.02); NRBC Auto 0.0 /100 WBC (0.0-0.2); Platelet Count 310 K/mm3 (150-400); RDW Coefficient Variation 14.5 % (11.7-14.2); RDW Standard Deviation 50.2 fL (35.1-46.3)
[2024-12-29 05:46] LABS: Alanine Aminotransfer (ALT/SGP 21.0 U/L (12-78); Albumin, Blood 3.1 g/dL (3.4-5.0); Albumin/Globulin Ratio 0.8 (0.8-1.8); Anion Gap 8.0 mmol/L (3-11); Aspartate Aminotrans (AST/SGOT 9.0 U/L (12-37); Bilirubin, Total 0.4 mg/dL (0.1-1.0); Blood Urea Nitrogen 19.0 mg/dL (8-24); CO2, Blood 24.0 mmol/L (21-32); Calcium, Blood 8.4 mg/dL (8.5-10.1); Chloride, Blood 108.0 mmol/L (98-108); Creatinine, Blood 0.59 mg/dL (0.60-1.20); Globulin, Blood 4.1 g/dL (2.2-4.0); Glucose, Blood 191.0 mg/dL (70-99); Magnesium, Blood 2.2 mg/dL (1.6-2.4); Potassium, Blood 4.3 mmol/L (3.5-5.5); Sodium, Blood 136.0 mmol/L (136-145); Total Protein, Blood 7.2 g/dL (6.4-8.2)
--- NOTE | 2024-12-29 08:00 | NUR ---
am note this rn assumed care at 0700. vital signs stable. tele aflutter 130s. spo2 >90% on room air. patient is alert and oriented x4. neuro is intact. patient denies pain, chest pain/pressure or shortness of breath. patient reports muscle spasms and plan to discuss this with md when rounding. patient is a standby for safety, otherwise independent. patient has reddness to bottom and reposition every two hours. see shift assessment for further detials. patient up in the chair this morning for breakfast
--- NOTE | 2024-12-29 08:48 | NUR ---
md rounding md amado in to see patient and discussed plan of care. md and patient discussed muscle relaxer and plan for resume patient home muslce relaxer. patient agrees with this plan. md discussed possibly starting metoprolol this today, but plan to discuss it with the team first. patient agreed to this plan
--- NOTE | 2024-12-29 09:21 | NUR ---
update md amado discontinued the muslce relaxer and instead started oral metorpolol. see orders
--- NOTE | 2024-12-29 09:34 | NUR ---
update-md rounding md lopez in to see patient and discussed staying one more night to monitor how patient responds to the metoprolol. patient is agreeable to this. plan to give nictoine patch daily vs a prn and order changed. see orders
--- NOTE | 2024-12-29 13:35 | NUR ---
update-heart rate patient heart rate averaging 130s-150s and blood pressure is holding systolic in the 100s. this rn called md amado to update on heart rate and changed the metoprolol from 12.5mg daily to metoprolol 12.5 mg bid.
--- NOTE | 2024-12-29 17:29 | NUR ---
shift summary see previous notes. vitals remain stable. tele afluter 120s-140s. patient walked around the unit today. no acute changes. plan remains up to date
[2024-12-30 02:30] VITALS: BP 112/88
--- NOTE | 2024-12-30 05:53 | NUR ---
SHIFT SUMMARY THIS RN ASSUMED CARE OF PATIENT AT 1900. PT A&O X4. ABLE TO MAKE NEEDS KNOWN. AFIB/AFLUTTER 80-130S. BP STABLE WITH SBP 100-110 S. PT ON RA WHILE AWAKE WITH SPO2 >92%. PT DOING OVERNIGHT SLEEP OXIMETRY STUDY. PT CALLED THIS RN AND REPORTED TO BE HAVING TROUBLE SLEEPING CITING THAT HE IS USED TO SLEEPING OUTSIDE ; MD SCHILLING WITH ORDER FOR PO MELATONIN. SLEEP STUDY STILL IN PROGRESS AT THIS TIME. SBA/IND WITH URINAL AT BEDSIDE. ABLE TO REPOSITION SELF IN BED. BED IN LOWEST POSITION AND CALL LIGHT WITHIN REACH. THIS RN WILL REPORT TO ONCOMING DAYSHIFT RN.
[2024-12-30 06:55] LABS: BASOPHILS ABSOLUTE AUTO 0.02 K/mm3 (0.00-0.23); BASOPHILS PERCENT AUTO 0 % (0-2); EOSINOPHILS ABSOLUTE AUTO 0.00 K/mm3 (0.00-0.68); EOSINOPHILS PERCENT AUTO 0 % (0-6); Hematocrit 41.9 % (37.0-53.0); Hemoglobin 14.3 g/dL (13.5-17.5); IMMATURE GRAN ABSOLUTE AUTO 0.10 K/mm3 (0.00-0.10); IMMATURE GRAN PERCENT AUTO 1 % (0-1); LYMPHOCYTES ABSOLUTE AUTO 1.09 K/mm3 (0.84-5.20); LYMPHOCYTES PERCENT AUTO 7 % (21-46); MONOCYTES ABSOLUTE AUTO 0.87 K/mm3 (0.16-1.47); MONOCYTES PERCENT AUTO 6 % (4-13); Mean Corpuscular HGB Conc 34.1 g/dL (31.5-36.5); Mean Corpuscular Volume 93 fL (80-100); NEUTROPHILS ABSOLUTE AUTO 13.28 K/mm3 (1.96-9.15); NEUTROPHILS PERCENT AUTO 86 % (41-73); NRBC ABSOLUTE 0.00 K/mm3 (0.00-0.02); NRBC Auto 0.0 /100 WBC (0.0-0.2); Platelet Count 347 K/mm3 (150-400); RDW Coefficient Variation 14.9 % (11.7-14.2); RDW Standard Deviation 51.2 fL (35.1-46.3)
[2024-12-30 07:10] LABS: Anion Gap 9.0 mmol/L (3-11); Blood Urea Nitrogen 23.0 mg/dL (8-24); CO2, Blood 24.0 mmol/L (21-32); Calcium, Blood 8.0 mg/dL (8.5-10.1); Chloride, Blood 109.0 mmol/L (98-108); Creatinine, Blood 0.61 mg/dL (0.60-1.20); Glucose, Blood 161.0 mg/dL (70-99); Magnesium, Blood 1.9 mg/dL (1.6-2.4); Potassium, Blood 4.0 mmol/L (3.5-5.5); Sodium, Blood 138.0 mmol/L (136-145)
[2024-12-30 07:21] VITALS: BP 104/78
[2024-12-30] MEDS ORDERED: Magnesium Sulf 2 GM/Water 50ML 50 ML IV ONE (07:35)
[2024-12-30] MEDS ORDERED: NS 250 ML IV PRN (08:50)
--- NOTE | 2024-12-30 10:19 | NUR ---
HEART RATE WITH AMBULATION TEST AT REST PRIOR TO AMBULATION. RATE/RHYTHM: AFIB 90'S-110'S. OCCASIONAL TOUCH TO 120'S. DURING AMBULATION. RATE/RHYTHM: AFIB 100'S-120'S. RECOVERY: TIME/RATE/RHYTHM: ABOUT TWO MINUTES AFTER AMBULATION; AFIB 90'S-100'S. PT ASYMPTOMATIC OF ANY RESP OR CARDIAC COMPLAINTS. DR. MATOS AWARE CALLED BY THIS RN, AND UPDATED ON AMBULATION TEST.
[2024-12-30 11:16] VITALS: BP 101/73
--- NOTE | 2024-12-30 12:24 | NUR ---
MORNING SHIFT SUMMARY THE PT IS A&OX4, CALLS APPROPRAITELY, AND MAKES HIS NEEDS KNOWN. THE PT IS IND IN THE ROOM. HE HAS BEEN ON RA AND RECIEVING BREATHING TREATMENTS PER RT. PT HAS CHRONIC SOB, BUT HAS DENIED ANY INCREASED SOB. THE PT HAD A SLEEP STUDY DRUING THE NIGHT AND WAS UP MAJORITY OF THE NIGHT. UNSUCCESSFUL STUDY. THE PT STATED HE WILL FOLLOW UP WITH HIS PCP THIS NEXT WEEK TO GET A SLEEP STUDY. THE PT STATES THAT HE HAS A GOOD SET UP IN HIS HOMELESS CAMP. HE HAS GENERATORS, AIR CONDITIONING, BATHROOMS, AND ACCESS TO RUNNING WATER. THE PT STATES HE HAS A BLOOD PRESSURE MACHINE AND A PULSE OX AT HOME AND WILL RECORD HIS VITALS TO F/U WITH HIS PCP. ON TELE THE PT HAS BEEN AFIB 90'S-120'S. SEE PREVIOUS NOTE ABOUT CARDIAC AMBULATION ASSESSMENT. BP STABLE. AWAITING FOR DISCHARGE ORDERS AT THIS TIME. SEE NOTES FOR ANY UPDATES.
[2024-12-30] MEDS ORDERED: Nicoderm Cq1 EACH TOP (13:49)
[2024-12-30] MEDS ORDERED: Nicoderm Cq1 EAC1 TOP (13:49)
[2024-12-30] MEDS ORDERED: NICO21TP TOP (13:49)
[2024-12-30] MEDS ORDERED: PRED20 PO (13:50)
[2024-12-30] MEDS ORDERED: ANORO ELLIPTA1 EACH INH (13:51)
--- NOTE | 2024-12-30 15:39 | NUR ---
PT DISCHARGED THIS AFTERNOON. ALL BELONGINGS WITH THE PT. 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 MEDICATIONS FAXED TO [facility] PER REQUEST.
== END 2024-12-30 15:31 | disposition home or self-care (01) | DRG 309 ==
LOC: ER 23:25 → PCU 23:26
PROVIDERS: Student in an Organized Health Care Education/Training Program; ADMIT Internal Medicine
PROC: 5A2204Z Restoration of Cardiac Rhythm, Single (ICD-10-PCS; principal; 2024-12-27)
DX: I48.0 Paroxysmal atrial fibrillation (principal); E87.1 Hypo-osmolality and hyponatremia; Z59.00 Homelessness unspecified; J44.1 Chronic obstructive pulmonary disease with (acute) exacerbation; F17.210 Nicotine dependence, cigarettes, uncomplicated; F10.10 Alcohol abuse, uncomplicated; F11.11 Opioid abuse, in remission; F15.11 Other stimulant abuse, in remission; F12.90 Cannabis use, unspecified, uncomplicated; M54.50 Low back pain, unspecified; E03.9 Hypothyroidism, unspecified; R94.6 Abnormal results of thyroid function studies; G47.30 Sleep apnea, unspecified; Z91.048 Other nonmedicinal substance allergy status; Z79.899 Other long term (current) drug therapy; Z79.51 Long term (current) use of inhaled steroids; Z79.01 Long term (current) use of anticoagulants; Z79.52 Long term (current) use of systemic steroids; Z98.890 Other specified postprocedural states; Z98.1 Arthrodesis status
CPT/HCPCS: 36415; 71045; 80048; 80053; 83735; 84439; 84443; 84484; 85025; 92960; 93005; 93010; 94640; 94664; 94762; 96365-59; 96366-59; 96368; 96375-59; 99285-25; A9270; G0378; J0282; J2919; J3475; J3480; J7030; J7050

== ENCOUNTER 2024-12-31 04:35 | Inpatient (IN) | payer OTHER ==
[~2024-12-31] VITALS: Ht 190.5 cm; Wt 68.5 kg
[~2024-12-31 04:35] MED LIST changes: +ANORO ELLIPTA1 EACH INH; +Cyclobenzaprine5 MG PO; +NICO21TP TOP; +Nicoderm Cq1 EAC1 TOP; +Nicoderm Cq1 EACH TOP; +ROSUVASTATIN CA20 MG PO
[2024-12-31] MEDS ORDERED: Diltiazem HCl 5 MG / ML 5ML Vial IV ONE ×2 (04:55→07:05)
[2024-12-31 05:11] LABS: BASOPHILS ABSOLUTE AUTO 0.02 K/mm3 (0.00-0.23); BASOPHILS PERCENT AUTO 0 % (0-2); EOSINOPHILS ABSOLUTE AUTO 0.00 K/mm3 (0.00-0.68); EOSINOPHILS PERCENT AUTO 0 % (0-6); Hematocrit 42.6 % (37.0-53.0); Hemoglobin 14.2 g/dL (13.5-17.5); IMMATURE GRAN ABSOLUTE AUTO 0.05 K/mm3 (0.00-0.10); IMMATURE GRAN PERCENT AUTO 0 % (0-1); LYMPHOCYTES ABSOLUTE AUTO 1.82 K/mm3 (0.84-5.20); LYMPHOCYTES PERCENT AUTO 13 % (21-46); MONOCYTES ABSOLUTE AUTO 1.60 K/mm3 (0.16-1.47); MONOCYTES PERCENT AUTO 12 % (4-13); Mean Corpuscular HGB Conc 33.3 g/dL (31.5-36.5); Mean Corpuscular Volume 94 fL (80-100); NEUTROPHILS ABSOLUTE AUTO 10.37 K/mm3 (1.96-9.15); NEUTROPHILS PERCENT AUTO 75 % (41-73); NRBC ABSOLUTE 0.00 K/mm3 (0.00-0.02); NRBC Auto 0.0 /100 WBC (0.0-0.2); Platelet Count 369 K/mm3 (150-400); RDW Coefficient Variation 14.9 % (11.7-14.2); RDW Standard Deviation 51.9 fL (35.1-46.3)
[2024-12-31 05:36] LABS: Anion Gap 7.0 mmol/L (3-11); Blood Urea Nitrogen 24.0 mg/dL (8-24); CO2, Blood 26.0 mmol/L (21-32); Calcium, Blood 7.6 mg/dL (8.5-10.1); Chloride, Blood 107.0 mmol/L (98-108); Creatinine, Blood 0.67 mg/dL (0.60-1.20); Glucose, Blood 109.0 mg/dL (70-99); Magnesium, Blood 2.1 mg/dL (1.6-2.4); Potassium, Blood 4.0 mmol/L (3.5-5.5); Sodium, Blood 136.0 mmol/L (136-145); Thyroid Stimulating Hormone 19.9 uIU/mL (0.360-4.800)
[2024-12-31] MEDS ORDERED: Albuterol 2.5 MG/3 ML VIAL INH SCH (07:05)
[2024-12-31] MEDS ORDERED: Ipratropium/Albuterol SulF 2.5-0.5MG/3 ML Amp INH ONE (07:05)
[2024-12-31] MEDS ORDERED: Diazepam 5 MG / ML 2ML SYR IV ONE (07:20)
[2024-12-31] MEDS ORDERED: Ondansetron HCl 2 MG / ML 2ML Vial IV PRN (08:25)
[2024-12-31] MEDS ORDERED: HYDROmorphone HCl/Pf 1MG SYR IV ONE (09:10)
[2024-12-31 10:21] VITALS: BP 112/89
[2024-12-31] MEDS ORDERED: Albuterol 2.5 MG/3 ML VIAL INH PRN (11:45)
[2024-12-31] MEDS ORDERED: Ipratropium/Albuterol SulF 2.5-0.5MG/3 ML Amp INH SCH (11:45)
[2024-12-31 12:20] VITALS: BP 117/73
[2024-12-31 16:06] VITALS: BP 104/62
--- NOTE | 2024-12-31 18:38 | NUR ---
SHIFT SUMMARY NO ACUTE EVENTS. PT ALERT, ORIENTED AND COOPERATIVE W/ CARE. PT INDEPENDENT IN ROOM W/ MEALS AND URINAL. LINE ASSIST FOR RR. DILTIAZEM RUNNING AT 5MG/HR. PT ON 2L VIA NC- DOES NOT WEAR O2 AT BASELINE. PT LUNGS WHEEZY T/O, DIM IN BASES. MULTIPLE BREATHING TX GIVEN W/ MINIMAL EFFECT. PT REPORTS SOB WHEN ATTEMPTING TO LIE FLAT- REPORTS RELIEF W/ FOWLERS POSITION. PT ON TELE, AFIB RATE OF 90S OBSERVED ON MONITOR. BP STABLE W/ MAP>65. PT DENIES CP. PT AFEBRILE. NO BM DURING THIS SHIFT. NO SKIN ISSUES OBSERVED. CALL LIGHT W/ IN REACH. PLAN OF CARE ONGOING
[2024-12-31 21:04] VITALS: BP 115/85
[2025-01-01] VITALS (8 sets, daily range): BP systolic 101–127; BP diastolic 73–87
--- NOTE | 2025-01-01 03:11 | NUR ---
MEDICATION REQUEST PAGED FOR PRN COUGH MEDICATION. DID NOT WANT RESPAN OR COVID PANEL OR SPUTUM CX AT THIS TIME. MD PALMER TO PUT IN NEW COUGH MEDICATION ORDER.
[2025-01-01] MEDS ORDERED: Dextromethorphan Polistirix 30 MG/5 ML 5ML Oral Syringe PO PRN (04:00)
[2025-01-01] MEDS ORDERED: Dextromethorphan Polistirix 30 MG/5 ML 5ML Oral Syringe PO ONE (04:00)
[2025-01-01 05:18] LABS: Hematocrit 39.5 % (37.0-53.0); Hemoglobin 13.4 g/dL (13.5-17.5); Mean Corpuscular HGB Conc 33.9 g/dL (31.5-36.5); Mean Corpuscular Volume 93 fL (80-100); NRBC ABSOLUTE 0.00 K/mm3 (0.00-0.02); NRBC Auto 0.0 /100 WBC (0.0-0.2); Platelet Count 349 K/mm3 (150-400); RDW Coefficient Variation 14.6 % (11.7-14.2); RDW Standard Deviation 50.4 fL (35.1-46.3)
[2025-01-01 05:56] LABS: Anion Gap 8.0 mmol/L (3-11); Blood Urea Nitrogen 17.0 mg/dL (8-24); CO2, Blood 29.0 mmol/L (21-32); Calcium, Blood 7.9 mg/dL (8.5-10.1); Chloride, Blood 101.0 mmol/L (98-108); Creatinine, Blood 0.62 mg/dL (0.60-1.20); Glucose, Blood 110.0 mg/dL (70-99); Potassium, Blood 3.9 mmol/L (3.5-5.5); Sodium, Blood 134.0 mmol/L (136-145)
--- NOTE | 2025-01-01 06:23 | NUR ---
PT ON DILTIAZEM DRIP AT 5 CC OVERNIGHT FOR AFIB RVR. PT HEART RATE IN 80-120'S. PT REQ 3 PRN BREATHING TREATMENTS OVERNIGHT FOR SOB. PT TITRATED DOWN FROM 2 LITERS NASAL CANULA TO 1 LITER A START OF SHIFT. AT 0625, PT ON ROOM AIR TRIALING TO MAINTAIN SATS. LUNGS WHEEZY AND COURSE W SEVERE COUGHING W SPUTUM PRODUCTION. MD PALMER PAGED IN AM AND NEW ORDERS RECEIVED FOR ONE TIME DELSYN 15 MG TO BE GIVEN NOW AND THEN AN ORDER PLACED FOR BID PRN DELSYN. RESPAN PANEL ALSO SENT. PT TOLD RN THAT HE WANTS A SLEEP STUDY BUT DISCUSSED NEED FOR ELECTRICITY FOR POWERING A CPAP IF NEEDED. WILL PASS ON TO DAY RN TO HAVE TEAM DISCUSS THIS W PT. PT CURRENTLY ON AZITHROMYCIN, STEROID AND BREATHING TREATMENTS FOR SOB AND REMAINS ON DILTIAZEM DRIP FOR AFIB RVR.
[2025-01-01 07:10] LABS: Influenza A/2009-H1 Not Detected (NOT DETECT); SARS-Cov-2 (COVID-19), BioFire Not Detected (NOT DETECT)
[2025-01-01] MEDS ORDERED: Diltiazem HCl 300 MG Cap.CD PO SCH (09:00)
--- NOTE | 2025-01-01 17:27 | NUR ---
SHIFT SUMMARY PT A&OX4, CALLS AND COMMUNICATES NEEDS APPROPRIATELY. BP STABLE, AFIB 90-110's, BRIEFLY UP TO 150's WITH ACTIVITY. SpO2> 92% RA, REPORTS SOB WHEN HR >120's, C/O COUGH, ORDERS PLACED. NO C/O PAIN. SBA IN ROOM. CONTINENT OF URINE AND BOWEL. NO OTHER EVENTS, WILL REPORT TO ONCOMING RN.
[2025-01-02] VITALS (7 sets, daily range): BP systolic 101–132; BP diastolic 69–90
[2025-01-02 04:33] LABS: Albumin, Blood 3.0 g/dL (3.4-5.0); Anion Gap 8 mmol/L (3-11); Blood Urea Nitrogen 13 mg/dL (8-24); CO2, Blood 31 mmol/L (21-32); Calcium, Blood 8.0 mg/dL (8.5-10.1); Chloride, Blood 98 mmol/L (98-108); Creatinine, Blood 0.67 mg/dL (0.60-1.20); Glucose, Blood 105 mg/dL (70-99); Magnesium, Blood 2.2 mg/dL (1.6-2.4); Phosphorus, Blood 3.5 mg/dL (2.5-4.9); Potassium, Blood 3.7 mmol/L (3.5-5.5); Sodium, Blood 133 mmol/L (136-145)
--- NOTE | 2025-01-02 04:55 | NUR ---
SHIFT SUMMARY PT A&O X4. ABLE TO MAKE NEEDS KNOWN. ANXIOUS AT TIMES. IND WITH URINAL AT BEDSIDE. PRN BREATHING TREATMENTS. ON RA WHILE AWAKE. 1-2L VIA NC NEEDED TO MAINTAIN SPO2 WHILE SLEEPING. NO ORDER FOR OVERNIGHT SLEEP OXIMETRY STUDY; WILL PASS ALONG TO DAYSHIFT TO ASK DAY TEAM MD. BP STABLE. AFIB WITH HR 80-100S MOST OF THIS SHIFT. DIG LOADING PER EMAR. PT DENIES CHEST PAIN/PRESSURE. OCCASIONAL DYSPNEA WITH EXERTION. AFEBRILE. BED IN LOWEST POSITION AND CALL LIGHT WITHIN REACH. THIS RN WILL REPORT TO ONCOMING DAYSHIFT RN.
--- NOTE | 2025-01-02 16:48 | NUR ---
SHIFT SUMMARY: A/O X4, PLEASANT AND COOPERATIVE WITH CARE, ABLE TO COMMUNICATE NEEDS, USES CALL LIGHT APPROPRIATELY, MILDLY ANXIOUS. AFIB W/RVR HRR 90'S-130'S, NO EDEMA NOTED, DENIES CHEST PAIN OR PRESSURE. COARSE CRACKLES AND WHEEZING THROUGHOUT LUNG FIGUEREDO, PT ENDORSED RELIEF WITH BREATHING TREATMENTS, DESATS WITH SLEEP <90%, 1-2L VIA NC WITH SLEEP, >92% WHILE AWAKE ON RA, PERSISTENT MOIST SOUNDING COUGH, NONPRODUCTIVE. CONTINENT OF BOWEL AND BLADDER, USES URINAL AT BEDSIDE INDEPENDENTLY, BOWEL TONES PRESENT IN ALL 4 QUADRANTS, PT STATES THAT MEALS ARE NOT FILLING AND REQUESTED MORE FOOD ON MEAL TRAYS, ENTERED A REQUEST NOTE TO FOOD SERVICES, OFFERED PANTRY ITEMS FOR TIMES OF INCREASED HUNGER, VISITED BY DENTAL HYGIENE, ORAL CARE AND EDUCATION PROVIDED, INDEPENDENT IN ROOM.
[2025-01-03] MEDS ORDERED: Ondansetron HCl 2 MG / ML 2ML Vial IV PRN (01:55)
[2025-01-03 04:46] VITALS: BP 126/86
--- NOTE | 2025-01-03 05:50 | NUR ---
SHIFT SUMMARY PT A&O X4. ABLE TO MAKE NEEDS KNOWN. ANXIOUS AT TIMES. PT CONVERTED FROM AFIB TO SR AT 01/02. HR 60-70S DURING THIS SHIFT. PRN BREATHING TREATMENTS. ON RA WHILE AWAKE. 1-2L VIA NC NEEDED TO MAINTAIN SPO2 WHILE SLEEPING. PT DENIES CHEST PAIN/PRESSURE. OCCASIONAL DYSPNEA WITH EXERTION. AFEBRILE. PT WITH CONTINUED HARSH COUGH T/O THIS SHIFT. MEDICATING PER EMAR. AROUND 0200 PT COUGHED SO HARD THAT HE REPORTED THAT HE FELT A POP ON HIS RIGHT SIDE AND SAID THAT IT FELT LIKE HE PULLED A MUSCLE . HE REPORTS THAT THIS HAS HAPPENED BEFORE WITH HIS COUGHING. PT ALSO REPORTED NAUSEA SHORTLY AFTER THIS COUGHING EPISODE. THIS RN SPOKE TO MD PALMER WITH ORDER FOR IV ZOFRAN. PT WAS ABLE TO FALL BACK TO SLEEP SHORTLY AFTER BEING MEDICATED. IND WITH URINAL AT BEDSIDE. BED IN LOWEST POSITION AND CALL LIGHT WITHIN REACH. THIS RN WILL REPORT TO ONCOMING DAYSMTFT RN.
[2025-01-03 08:07] VITALS: BP 118/71
[2025-01-03] MEDS ORDERED: Diltiazem HCl 180 MG Cap.CD PO SCH (09:00)
[2025-01-03 10:02] LABS: Albumin, Blood 3.2 g/dL (3.4-5.0); Anion Gap 7 mmol/L (3-11); Blood Urea Nitrogen 25 mg/dL (8-24); CO2, Blood 32 mmol/L (21-32); Calcium, Blood 8.5 mg/dL (8.5-10.1); Chloride, Blood 97 mmol/L (98-108); Creatinine, Blood 0.77 mg/dL (0.60-1.20); Glucose, Blood 109 mg/dL (70-99); Phosphorus, Blood 4.4 mg/dL (2.5-4.9); Potassium, Blood 4.0 mmol/L (3.5-5.5); Sodium, Blood 132 mmol/L (136-145)
[2025-01-03] MEDS ORDERED: Tessalon200 MG PO (11:42)
[2025-01-03] MEDS ORDERED: DIGOX125 MC1 PO (11:42)
[2025-01-03] MEDS ORDERED: DILTIAZEM ER360 MG PO (11:43)
[2025-01-03] MEDS ORDERED: MUCINEX600 MG PO (11:44)
[2025-01-03] MEDS ORDERED: JARDIANCE10 MG PO (11:44)
[2025-01-03] MEDS ORDERED: FURO40 PO (11:44)
[2025-01-03] MEDS ORDERED: Prednisone10 MG PO (11:45)
[2025-01-03] MEDS ORDERED: SPIR25 PO (11:45)
--- NOTE | 2025-01-03 12:47 | NUR ---
DISCHARGE NOTE PT DISCHARGED TO HOME, PICKED UP BY HIS GF. IV REMOVED. MEDICATIONS FAXED TO THE PHARMACY OF HIS CHOICE. DISCHARGE INFORMATION REVIEWED WITH THE PT, EDUCATION PROVIDE ABOUT HIS NEW MEDICATIONS. PT VERBALIZED UNDERSTANDING. PERSONAL BELONGINGS RETURNED. PT TAKEN TO HIS VEHICLE BY REANNA.
== END 2025-01-03 12:35 | disposition home or self-care (01) | DRG 308 ==
LOC: ER 04:35 → PCU 09:24
PROVIDERS: Emergency Medicine; Student in an Organized Health Care Education/Training Program; ADMIT Internal Medicine
DX: I48.91 Unspecified atrial fibrillation (principal); E43 Unspecified severe protein-calorie malnutrition; I50.31 Acute diastolic (congestive) heart failure; J44.1 Chronic obstructive pulmonary disease with (acute) exacerbation; Z59.00 Homelessness unspecified; Z68.1 Body mass index [BMI] 19.9 or less, adult; F17.210 Nicotine dependence, cigarettes, uncomplicated; F41.9 Anxiety disorder, unspecified; E03.8 Other specified hypothyroidism; G47.00 Insomnia, unspecified; Z80.1 Family history of malignant neoplasm of trachea, bronchus and lung; Z82.49 Family history of ischemic heart disease and other diseases of the circulatory system; Z79.01 Long term (current) use of anticoagulants; Z98.890 Other specified postprocedural states; Z79.899 Other long term (current) drug therapy; Z79.52 Long term (current) use of systemic steroids; Z91.048 Other nonmedicinal substance allergy status
CPT/HCPCS: 0202U; 36415; 71045; 80048; 80069; 80162; 83735; 83880; 84145; 84439; 84443; 84484; 85025; 85027; 93005; 93010; 94640; 94645; 94760; 94761; 94762; 96365; 96368; 96375; 96376; 99285-25; A9270; J0456; J0612; J1160; J2405; J2919; J3360; J7050; J7512

== ENCOUNTER 2025-01-12 20:36 | Emergency (ER) | payer OTHER ==
[~2025-01-12] VITALS: Ht 190.5 cm; Wt 74.8 kg
[~2025-01-12 20:36] MED LIST changes: +DIGOX125 MC1 PO; +DILTIAZEM ER360 MG PO; +FURO40 PO; +JARDIANCE10 MG PO; +MUCINEX600 MG PO; +Prednisone10 MG PO; +SPIR25 PO; +Tessalon200 MG PO
[2025-01-12] MEDS ORDERED: Ipratropium/Albuterol SulF 2.5-0.5MG/3 ML Amp INH PRN (20:50)
[2025-01-12 20:58] LABS: BASOPHILS ABSOLUTE AUTO 0.07 K/mm3 (0.00-0.23); BASOPHILS PERCENT AUTO 1 % (0-2); EOSINOPHILS ABSOLUTE AUTO 0.11 K/mm3 (0.00-0.68); EOSINOPHILS PERCENT AUTO 1 % (0-6); Hematocrit 38.8 % (37.0-53.0); Hemoglobin 13.2 g/dL (13.5-17.5); IMMATURE GRAN ABSOLUTE AUTO 0.11 K/mm3 (0.00-0.10); IMMATURE GRAN PERCENT AUTO 1 % (0-1); LYMPHOCYTES ABSOLUTE AUTO 3.79 K/mm3 (0.84-5.20); LYMPHOCYTES PERCENT AUTO 29 % (21-46); MONOCYTES ABSOLUTE AUTO 0.94 K/mm3 (0.16-1.47); MONOCYTES PERCENT AUTO 7 % (4-13); Mean Corpuscular HGB Conc 34.0 g/dL (31.5-36.5); Mean Corpuscular Volume 93 fL (80-100); NEUTROPHILS ABSOLUTE AUTO 8.11 K/mm3 (1.96-9.15); NEUTROPHILS PERCENT AUTO 62 % (41-73); NRBC ABSOLUTE 0.00 K/mm3 (0.00-0.02); NRBC Auto 0.0 /100 WBC (0.0-0.2); Platelet Count 413 K/mm3 (150-400); RDW Coefficient Variation 14.7 % (11.7-14.2); RDW Standard Deviation 49.8 fL (35.1-46.3)
[2025-01-12 21:24] LABS: Alanine Aminotransfer (ALT/SGP 47.0 U/L (12-78); Albumin, Blood 3.4 g/dL (3.4-5.0); Albumin/Globulin Ratio 1.1 (0.8-1.8); Anion Gap 7.0 mmol/L (3-11); Aspartate Aminotrans (AST/SGOT 24.0 U/L (12-37); Bilirubin, Total 0.2 mg/dL (0.1-1.0); Blood Urea Nitrogen 13.0 mg/dL (8-24); CO2, Blood 29.0 mmol/L (21-32); Calcium, Blood 8.0 mg/dL (8.5-10.1); Chloride, Blood 100.0 mmol/L (98-108); Creatinine, Blood 0.72 mg/dL (0.60-1.20); Globulin, Blood 3.0 g/dL (2.2-4.0); Glucose, Blood 114.0 mg/dL (70-99); Potassium, Blood 4.0 mmol/L (3.5-5.5); Sodium, Blood 132.0 mmol/L (136-145); Total Protein, Blood 6.4 g/dL (6.4-8.2)
[2025-01-12 22:14] LABS: Influenza A, PCR NEGATIVE (NEGATIVE); Influenza B, PCR NEGATIVE (NEGATIVE); Resp Syncytial Virus, PCR NEGATIVE (NEGATIVE); SARS-Cov-2 (COVID-19) PCR, MMC NEGATIVE (NEGATIVE)
[2025-01-12 22:15] VITALS: BP 105/67
== END 2025-01-12 22:50 | disposition home or self-care (01) ==
LOC: ER 20:36
PROVIDERS: Emergency Medicine
DX: J44.1 Chronic obstructive pulmonary disease with (acute) exacerbation (principal)
CPT/HCPCS: 71046; 80053; 83880; 84484; 85025; 87637; 93005; 93010; 96374; 99285-25; J2919

== ENCOUNTER 2025-04-19 13:03 | Emergency (ER) | payer OTHER ==
[~2025-04-19] VITALS: Ht 190.5 cm; Wt 83.9 kg
[2025-04-19 13:24] LABS: BASOPHILS ABSOLUTE AUTO 0.09 K/mm3 (0.00-0.23); BASOPHILS PERCENT AUTO 1 % (0-2); EOSINOPHILS ABSOLUTE AUTO 0.13 K/mm3 (0.00-0.68); EOSINOPHILS PERCENT AUTO 2 % (0-6); Hematocrit 44.4 % (37.0-53.0); Hemoglobin 15.4 g/dL (13.5-17.5); IMMATURE GRAN ABSOLUTE AUTO 0.02 K/mm3 (0.00-0.10); IMMATURE GRAN PERCENT AUTO 0 % (0-1); LYMPHOCYTES ABSOLUTE AUTO 1.99 K/mm3 (0.84-5.20); LYMPHOCYTES PERCENT AUTO 28 % (21-46); MONOCYTES ABSOLUTE AUTO 0.78 K/mm3 (0.16-1.47); MONOCYTES PERCENT AUTO 11 % (4-13); Mean Corpuscular HGB Conc 34.7 g/dL (31.5-36.5); Mean Corpuscular Volume 94 fL (80-100); NEUTROPHILS ABSOLUTE AUTO 4.21 K/mm3 (1.96-9.15); NEUTROPHILS PERCENT AUTO 58 % (41-73); NRBC ABSOLUTE 0.00 K/mm3 (0.00-0.02); NRBC Auto 0.0 /100 WBC (0.0-0.2); Platelet Count 326 K/mm3 (150-400); RDW Coefficient Variation 15.3 % (11.7-14.2); RDW Standard Deviation 53.7 fL (35.1-46.3)
[2025-04-19 13:50] LABS: Alanine Aminotransfer (ALT/SGP 57.0 U/L (12-78); Albumin, Blood 3.8 g/dL (3.4-5.0); Albumin/Globulin Ratio 1.2 (0.8-1.8); Anion Gap 6.0 mmol/L (3-11); Aspartate Aminotrans (AST/SGOT 50.0 U/L (12-37); Bilirubin, Total 0.4 mg/dL (0.1-1.0); Blood Urea Nitrogen 9.0 mg/dL (8-24); CO2, Blood 28.0 mmol/L (21-32); Calcium, Blood 8.2 mg/dL (8.5-10.1); Chloride, Blood 103.0 mmol/L (98-108); Creatinine, Blood 0.75 mg/dL (0.60-1.20); Globulin, Blood 3.2 g/dL (2.2-4.0); Glucose, Blood 89.0 mg/dL (70-99); Potassium, Blood 4.4 mmol/L (3.5-5.5); Sodium, Blood 133.0 mmol/L (136-145); Total Protein, Blood 7.0 g/dL (6.4-8.2)
[2025-04-19] MEDS ORDERED: NS 1,000 ML IV SCH (14:00)
[2025-04-19] MEDS ORDERED: Ipratropium/Albuterol SulF 2.5-0.5MG/3 ML Amp INH ONE (14:00)
[2025-04-19 17:57] VITALS: BP 104/89
[2025-04-19] MEDS ORDERED: XARELTO20 MG PO (18:04)
== END 2025-04-19 17:55 | disposition home or self-care (01) ==
LOC: ER 13:03
PROVIDERS: Emergency Medicine
DX: I48.91 Unspecified atrial fibrillation (principal); E87.1 Hypo-osmolality and hyponatremia; R07.89 Other chest pain; Z79.01 Long term (current) use of anticoagulants; R74.01 Elevation of levels of liver transaminase levels; Z79.52 Long term (current) use of systemic steroids; Z79.899 Other long term (current) drug therapy; Z91.048 Other nonmedicinal substance allergy status
CPT/HCPCS: 71046; 80053; 80162; 84484; 85025; 93005; 93010; 96360; 99285-25; A9270; J7030